=== PATIENT | female | born 1985 | race Caucasian/White ===

== ENCOUNTER 2018-07-13 14:02 | Emergency (ER) | payer MEDICAID ==
[~2018-07-13] VITALS: Ht 167.6 cm; Wt 63.6 kg
[~2018-07-13 14:02] MED LIST: ACET-75 PO; CLIN150C8 PO; DICY10CA88 PO; ESCI5TAB12 PO; IBUP-1985 PO
[2018-07-13] MEDS ORDERED: dexamethasone sod phosphate 10mg/ml inj IV STA (15:31)
[2018-07-13] MEDS ORDERED: ketorolac tromethamine 15mg/ml inj. IV ONE (15:35)
[2018-07-13] MEDS ORDERED: normal saline 1000ML IV soln IVB ONE (15:35)
[2018-07-13 16:56] VITALS: BP 121/70
== END 2018-07-13 17:03 | disposition home or self-care (01) ==
LOC: ER 14:03
DX: R51 Headache (principal); Z86.73 Personal history of transient ischemic attack (TIA), and cerebral infarction without residual deficits; Z98.890 Other specified postprocedural states; Z88.5 Allergy status to narcotic agent; Z79.899 Other long term (current) drug therapy
CPT/HCPCS: 96374; 96375; 99283; J1100; J1885; J7030